=== PATIENT | female | born 1965 | race Caucasian/White ===

== ENCOUNTER 2020-03-05 08:43 | Emergency (ER) | payer MEDICAID, OTHER ==
[~2020-03-05] VITALS: Ht 162.6 cm; Wt 65.0 kg
[2020-03-05] MEDS ORDERED: ALBUTEROL INHALER INH (08:50)
[2020-03-05] MEDS ORDERED: LEVO175T5 PO (08:53)
[2020-03-05] MEDS ORDERED: SODIUM CHLORIDE 0.9% 1,000ML IVBOLUS ONE (09:00)
[2020-03-05] MEDS ORDERED: LORazepam 2 MG/ML, 1ML IVPush ONE ×2 (09:00→11:00)
--- NOTE | 2020-03-05 09:00 | NUR ---
LATE ENTRY: PT ARI FAJARDO FOR MEDICAL CLEARANCE AND ETOH WITH[place]AWAL [place]. [place] STATED THAT PT HAD SI AND A PLAN TO OD ON PILLS. PT DENIES ANY PLAN OR CURRENT DESIRE TO HARM SELF OR OTHERS. BELONGINGS REMOVED AND STORED IN LOCKED CABINET. 11/04 BAGS LABELED. BAG CONTAINS PHONE, GLASSES, WALLET, SHOES, SOCKS, PANTS, AND SHIRT. PT PLACED ON MONITOR AND SITTER IS IN LINE OF SITE. PT MAEx4, P/W/D, NAD, RESTING COMFORTABLY ON GURNEY IN GOWN. VSS AT THIS TIME. GIVEN WARM BLANKETS FOR COMFORT.
[2020-03-05] MEDS ORDERED: TRAZODONE PO (09:03)
[2020-03-05] MEDS ORDERED: FLUOXETINE PO (09:03)
[2020-03-05] MEDS ORDERED: LORazepam 2 MG/ML, 1ML ONE ×2 (09:12→10:39)
[2020-03-05 09:50] LABS: BASOPHILS # (AUTO) 0.02 x10^3/uL (0-0.1); BASOPHILS % (AUTO) 0 % (0-1); EOSINOPHILS # (AUTO) 0.33 x10^3/uL (0-0.4); EOSINOPHILS % (AUTO) 5 % (1-7); LYMPHOCYTES # (AUTO) 2.43 x10^3/uL (1-3.4); LYMPHOCYTES % (AUTO) 32 % (22-44); MD NO; MEAN CORPUSCULAR HEMOGLOBIN 31.5 pg (27.0-34.8); MEAN CORPUSCULAR HGB CONC 33.6 g/dL (32.4-35.8); MEAN CORPUSCULAR VOLUME 93.8 fL (80-100); MEAN PLATELET VOLUME 6.9 fL (7.4-10.4); MONOCYTES # (AUTO) 0.39 x10^3/uL (0.2-0.8); MONOCYTES % (AUTO) 5 % (2-9); NEUTROPHILS # (AUTO) 4.32 x10^3/uL (1.8-6.8); NEUTROPHILS % (AUTO) 58 % (42-75); PLATELET COUNT 267 x10^3/uL (130-400); RED CELL DISTRIBUTION WIDTH 14.1 % (9.6-15.2)
--- NOTE | 2020-03-05 10:09 | NUR ---
PT MAEx4, P/W/D, NAD, RESP WNL, ABC INTACT, LIGHTS DIMMED FOR COMFORT, RESTING COMFORTABLY ON GURNEY IN GOWN. VSS AT THIS TIME. GIVEN ADDITIONAL WARM BLANKET AND SOCKS FOR COMFORT.
[2020-03-05 10:11] LABS: SALICYLATE LEVEL < 1.7 mg/dL (2.8-20.0)
[2020-03-05 10:16] LABS: ALANINE AMINOTRANSFERASE 28 U/L (12-78); ALBUMIN 3.6 g/dL (3.4-5.0); ANION GAP 7 mmol/L (5-15); CALCIUM 8.6 mg/dL (8.5-10.1); CHLORIDE 106 mmol/L (98-107); CREATININE 0.77 mg/dL (0.55-1.02)
[2020-03-05 10:18] LABS: ALKALINE PHOSPHATASE 85 U/L (45-117); BILIRUBIN,TOTAL 0.7 mg/dL (0.2-1.0); TOTAL PROTEIN 7.1 g/dL (6.4-8.2)
--- NOTE | 2020-03-05 10:26 | NUR ---
pt keagan walked to lab.
[2020-03-05 10:32] LABS: MICROSCOPIC NOT IND
[2020-03-05 10:44] LABS: AMPHETAMINE SCREEN, URINE Negative (Negative); BARBITURATE SCREEN, URINE Negative (Negative); BENZODIAZEPINE SCREEN, URINE Negative (Negative); CANNABINOID SCREEN, URINE Negative (Negative); COCAINE SCREEN, URINE Negative (Negative); METHADONE SCREEN, URINE Negative (Negative); OPIATE SCREEN, URINE Negative (Negative)
--- NOTE | 2020-03-05 11:16 | NUR ---
DIET TRAY ORDERED. PT RESTING IN GURNEY, APPEARS MORE CALM AND RELAXED, LIGHTS DIMMED, P/W/D, RESP WNL, VSS, ABC INTACT. SITTER IN [place]OG[place]. WCTM.
--- NOTE | 2020-03-05 11:41 | NUR ---
Pt resting in gurney, NAD, VSS, P/W/D, RESP WNL. Margo CANNON at for eval. ABY.
--- NOTE | 2020-03-05 12:30 | NUR ---
PT GIVEN DC INSTRUCTIONS AND TAXI VOUCHER TO [facility]. PT DENIES ADDITIONAL QUESTIONS OR NEEDS AT THIS TIME. GIVEN LUNCH TRAY FOR A QUICK SNACK BEFORE LEAVING, VERBALIZED UNDERSTANDING, NAD, RESP WNL, VSS, P/W/D. SMOOTH AND STEADY GAIT.
--- NOTE | 2020-03-05 12:36 | NUR ---
[facility] notified that pt would be coming back over and was cleared.
== END 2020-03-05 12:45 | disposition home or self-care (01) ==
LOC: ED 09:55 → MERGE 09:55 → ED 12:45
DX: F10.239 Alcohol dependence with withdrawal, unspecified (principal); R45.1 Restlessness and agitation; J45.909 Unspecified asthma, uncomplicated; E03.9 Hypothyroidism, unspecified; R94.31 Abnormal electrocardiogram [ECG] [EKG]; Y90.0 Blood alcohol level of less than 20 mg/100 ml
CPT/HCPCS: 36415; 80053; 80307; 81003; 83690; 84443; 85025; 93005; 96374; 96376; 99284; J2060; J7030

== ENCOUNTER 2020-03-23 22:42 | Emergency (ER) | payer MEDICAID, OTHER, SELFPAY ==
[~2020-03-23] VITALS: Ht 162.6 cm; Wt 63.0 kg
[~2020-03-23 22:42] MED LIST: ALBUTEROL INHALER INH; FLUOXETINE PO; LEVO175T5 PO; TRAZODONE PO
[2020-03-23] MEDS ORDERED: MAGNESIUM SULFATE 1 GM, THIAMINE 100 MG, FOLIC ACID 1 MG, MVI ADULT 10 ML in SODIUM CHL... IV ONE (23:00)
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
--- NOTE | 2020-03-23 23:09 | NUR ---
belongings placed in 1 bag in locker
--- NOTE | 2020-03-23 23:18 | NUR ---
PT BLOOD GLUCOSE STILL LOW. DR KWAN INFORMED AND RECOMMENDED A SANDWICH FOR PT. PT REFUSING TO EAT. DR. KWAN NOTIFIED.
[2020-03-23] MEDS ORDERED: GLUCAGON 1 MG ONE (23:22)
[2020-03-23 23:24] LABS: AMPHETAMINE SCREEN, URINE Negative (Negative); BARBITURATE SCREEN, URINE Negative (Negative); BENZODIAZEPINE SCREEN, URINE Positive (Negative); CANNABINOID SCREEN, URINE Negative (Negative); COCAINE SCREEN, URINE Negative (Negative); METHADONE SCREEN, URINE Negative (Negative); OPIATE SCREEN, URINE Negative (Negative)
[2020-03-23] MEDS ORDERED: GLUCAGON 1 MG IVPush ONE (23:30)
--- NOTE | 2020-03-23 23:30 | NUR ---
pt now states that she fell and hit her head this evening. small abrasion noted on the back of her head. Dr Beckett informed and CT scan ordered
[2020-03-23 23:32] LABS: BASOPHILS # (AUTO) 0.06 x10^3/uL (0-0.1); BASOPHILS % (AUTO) 1 % (0-1); EOSINOPHILS # (AUTO) 0.35 x10^3/uL (0-0.4); EOSINOPHILS % (AUTO) 5 % (1-7); LYMPHOCYTES # (AUTO) 4.15 x10^3/uL (1-3.4); LYMPHOCYTES % (AUTO) 54 % (22-44); MD NO; MEAN CORPUSCULAR HEMOGLOBIN 31.9 pg (27.0-34.8); MEAN CORPUSCULAR VOLUME 93.6 fL (80-100); MEAN PLATELET VOLUME 7.4 fL (7.4-10.4); MONOCYTES # (AUTO) 0.49 x10^3/uL (0.2-0.8); MONOCYTES % (AUTO) 6 % (2-9); NEUTROPHILS # (AUTO) 2.68 x10^3/uL (1.8-6.8); NEUTROPHILS % (AUTO) 35 % (42-75); PLATELET COUNT 322 x10^3/uL (130-400); RED BLOOD COUNT 4.52 x10^6/uL (3.82-5.3); RED CELL DISTRIBUTION WIDTH 16.5 % (9.6-15.2)
[2020-03-23 23:43] LABS: ALANINE AMINOTRANSFERASE 24 U/L (12-78); ALBUMIN 3.6 g/dL (3.4-5.0); ANION GAP 9 mmol/L (5-15); CALCIUM 8.1 mg/dL (8.5-10.1); CHLORIDE 106 mmol/L (98-107); CREATININE 1.06 mg/dL (0.55-1.02)
[2020-03-23 23:45] LABS: ALKALINE PHOSPHATASE 97 U/L (45-117); BILIRUBIN,TOTAL 0.3 mg/dL (0.2-1.0); SALICYLATE LEVEL < 1.7 mg/dL (2.8-20.0)
[2020-03-24] MEDS ORDERED: ACETAMINOPHEN 325 MG TABLET PO ONE ×2 (01:00→08:00)
--- NOTE | 2020-03-24 01:00 | NUR ---
PT RESTING ON [facility]. VSS. SITTER AT DOORWAY FOR FREQUENT CHECKS.
[2020-03-24] MEDS ORDERED: ACETAMINOPHEN 325 MG TABLET ONE (01:05)
--- NOTE | 2020-03-24 02:00 | NUR ---
PT RESTING ON GURNEY, EYES CLOSED. RESPIRATIONS EVEN AND UNLABORED. VSS. SITTER AT DOORWAY FOR FREQUENT CHECKS.
--- NOTE | 2020-03-24 03:00 | NUR ---
PT RESTING ON GURNEY, EYES CLOSED. RESPIRATIONS EVEN AND UNLABORED. VSS. SITTER AT DOORWAY FOR FREQUENT CHECKS.
--- NOTE | 2020-03-24 04:00 | NUR ---
PT RESTING ON GURNEY, EYES CLOSED. RESPIRATIONS EVEN AND UNLABORED. VSS. SITTER AT DOORWAY FOR FREQUENT CHECKS.
[2020-03-24] MEDS ORDERED: IBUPROFEN 600 MG TABLET ONE (04:34)
[2020-03-24] MEDS ORDERED: IBUPROFEN 600 MG TABLET PO ONE (05:00)
--- NOTE | 2020-03-24 05:00 | NUR ---
PT RESTING ON GURNEY, EYES CLOSED. RESPIRATIONS EVEN AND UNLABORED. VSS. SITTER AT DOORWAY FOR FREQUENT CHECKS.
--- NOTE | 2020-03-24 06:01 | NUR ---
PT RESTING ON [facility]. VSS. SITTER AT DOORWAY FOR FREQUENT CHECKS.
--- NOTE | 2020-03-24 07:03 | NUR ---
[facility] RPT REC'D AND ASSUMED PT CARE. PT SLEEPING, ALL MONITORS IN PLACE AND VSS, IVF INFUSING W/O DIFFICULTY. MEAL TRAY ORDERED.
[2020-03-24] MEDS ORDERED: ACETAMINOPHEN 500 MG TABLET ONE (07:52)
[2020-03-24] MEDS ORDERED: LORazepam 2 MG/ML, 1ML ONE (07:53)
[2020-03-24] MEDS ORDERED: LORazepam 2 MG/ML, 1ML IVPush ONE (08:00)
--- NOTE | 2020-03-24 08:00 | NUR ---
PT AROUSES TO VERBAL STIM. IS PLEASANT AND COOPERATIVE. FSBS = 62, MEAL TRAY HAS ALREADY BEEN ORDERED. PT GIVEN 120ML OF OJ W/O DIFFICULTY. PT C/O "FEEL LIKE W/D COMING ON" AND ALSO W/ C/O OF ZHANG. DISCUSSED WITH DR BAILEY, ORDERS REC'D AND PT MED NOTED. CALL LIGHT W/I REACH , WARM BLANKETS PROVIDED.
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
--- NOTE | 2020-03-24 10:03 | NUR ---
REPORT RECEIVED FROM KATIE SCHULTZ. PT IS RESTING ON GURNEY W/ SITTER OUTSIDE ROOM. AROUSES TO VERBAL STIMULI. PT FSBS IS 75 AT THIS TIME.
--- NOTE | 2020-03-24 11:00 | NUR ---
PT RESTING ON GURNEY W/ SITTER OUTSIDE ROOM. RESP EVEN AND UNLABORED, RAMIN.
--- NOTE | 2020-03-24 11:36 | NUR ---
YANETH CANNON AT BEDSIDE.
[2020-03-24 12:46] VITALS: BP 109/78
[2020-03-24] MEDS ORDERED: hydrOXyzine 50MG TABLET ONE (12:47)
--- NOTE | 2020-03-24 13:00 | NUR ---
Patient given discharge instructions and they have confirmed that they understand the instructions. Patient ambulatory with steady gait.
== END 2020-03-24 13:13 | disposition home or self-care (01) ==
LOC: ED 03-24 00:32
DX: F10.120 Alcohol abuse with intoxication, uncomplicated (principal); R45.851 Suicidal ideations; F32.9 Major depressive disorder, single episode, unspecified; R73.9 Hyperglycemia, unspecified; Y90.0 Blood alcohol level of less than 20 mg/100 ml
CPT/HCPCS: 70450; 80053; 80307; 82962; 85025; 96365; 96366; 96375; 99285; J1610; J2060; J3411; J3475; J7030; Q0177; 99283